=== PATIENT | male | born 1985 | race Two or more races ===

== ENCOUNTER 2025-05-29 19:58 | Inpatient (IN) | payer MEDICAID, OTHER ==
[~2025-05-29] VITALS: Ht 165.1 cm; Wt 95.4 kg
--- NOTE | 2025-05-29 20:19 | ED.PDOC ---
GI ASSESSMENT HPI Comments 39 year old male who came to ER for abdominal pain. About 3 hours prior to arrival, patient developed sudden onset sharp epigastric abdominal pain, radiating to his right lower quadrant. Tender to touch. Noted to be nauseated. Denies any history of abdominal surgeries Chief Complaint: Abdominal Pain Time Seen by MD: 20:19 Reviewed Notes: Nurses Notes Allergies: Coded Allergies: No Known Drug Allergy (Verified Allergy, Unknown, 05/29/25) Information Source: Patient Mode of Arrival: Ambulatory Past Medical History PAST MEDICAL HISTORY: Denies Surgical History: Denies all surgeries Family History Family History: Reviewed,noncontributory to illness Social History Smoker: Non-Smoker Alcohol: Denies ETOH Use Drugs: Denies Drug Use Lives In: Home Constitutional: denies: chills, diaphoresis, fatigue, fever, malaise, sweats, weakness, others EENTM: denies: blurred vision, double vision, ear bleeding, ear discharge, ear drainage, ear pain, ear ringing, eye pain, eye redness, hearing loss, mouth pain, mouth swelling, nasal discharge, nose bleeding, nose congestion, nose pain, photophobia, tearing, throat pain, throat swelling, voice changes, others Respiratory: denies: cough, hemoptysis, orthopnea, SOB at rest, shortness of breath, SOB with excertion, stridor, wheezing, others Cardiovascular: denies: chest pain, dizzy spells, diaphoresis, Dyspnea on exertion, edema, irregular heart beat, left arm pain, lightheadedness, palpi tations, PND, syncope, others Gastrointestinal: reports: abdominal pain, nausea; denies: abdomen distended, blood streaked bowels, constipated, diarrhea, dysphagia, difficulty swallowing, hematemesis, melena, poor appetite, poor fluid intake, rectal bleeding, rectal pain, vomiting, others Genitourinary: denies: burning, dysuria, flank pain, frequency, hematuria, incontinence, penile discharge, penile sore, pain, testicle pain, testicle swelling, urgency, others Neurological: denies: dizziness, fainting, headache, left sided numbness, left sided weakness, numbness, paresthesia, pre-existing deficit, right sided numbness, right sided weakness, seizure, speech problems, tingling, tremors, weakness, others Musculoskeletal: denies: back pain, gout, joint pain, joint swelling, muscle pain, muscle stiffness, neck pain, others Integumetry: denies: bruises, change in color, change in hair/nails, dryness, laceration, lesions, lumps, rash, wounds, others Allergic/Immunocompromised: denies: Difficulty Healing, Frequent Infections, Hives, Itching, others Hematologic/Lymphatic: denies: anemia, blood clots, easy bleeding, easy bruising, swollen glands, others Endocrine: denies: excessive hunger, excessive sweating, excessive thirst, excessive urination, flushing, intolerance to cold, intolerance to heat, unexpla ined weight gain, unexplained weight loss, others Psychiatric: denies: anxiety, bipolar disorder, depression, hopeless, panic disorder, schizophrenia, sleepless, suicidal, others Physical Exam General Appearance: No Apparent Distress, Normal HEENT: Normal ENT Inspection, Pharynx Normal, TMs Normal Neck: Full Range of Motion, Non-Tender, Normal, Normal Inspection Respiratory: Chest Non-Tender, Lungs Clear, No Accessory Muscle Use, No Respiratory Distress, Normal Breath Sounds Cardiovascular: No Edema, No JVD, No Murmur, No Gallop, Normal Peripheral Pulses, Regular Rate/Rhythm Breast Exam: Deferred Gastrointestinal: No Organomegaly, Non Tender, No Pulsatile Mass, Normal Bowel Sounds, Soft Genitalia: Deferred Pelvic: Deferred Rectal: Deferred Extremities: No calf tenderness, Normal capillary refill, Normal inspection, Normal range of motion, Non-tender, No pedal edema Musculoskeletal : Apperance: Normal Neurologic: Alert, boom worker II-XII nml as Tested, No Motor Deficits, Normal Affect, Normal Mood, No Sensory Deficits Cerebellar Function: Normal Reflexes: Normal Skin: Dry, Normal Color, Warm Lymphatic: No Adenopathy Was a procedure done? Was a procedure done?: No GI differential Dx Differential Diagnosis: Appendicitis, Cholecystitis, Constipation, Diverticular disease, Gastritis/PUD, Gastroenteritis, Pancreatitis X-Ray, Labs, Meds, VS Vital Signs Date Time Temp Pulse Resp B/P (MAP) Pulse Ox O2 Delivery O2 Flow Rate FiO2 05/29/25 23:32 98.5 76 15 140/85 (103) 98 98.5 05/29/25 23:31 76 15 140/85 05/29/25 21:18 70 18 128/67 05/29/25 21:09 98.5 70 18 128/67 (87) 95 98.5 05/29/25 20:00 97.7 57 18 138/77 97 97.7 Lab Test 05/29/25 21:19 05/29/25 20:52 05/29/25 20:20 Range/Units Lactic Acid Level 1.7 0.4-2.0 mmol/L Urine Color Yellow Yellow Urine Clarity Clear Clear Urine pH 6.0 5.0-9.0 Urine Specific [place] 1.035 1.001-1.035 Urine Protein Trace H Negative Urine Ketones Trace Negative Urine Blood Negative Negative /uL Urine Nitrite Negative Negative Urine Bilirubin Negative Negative Urine Urobilinogen Normal Negative mg/dL Urine Leukocyte Esterase Negative Negative /uL Urine RBC 2 0 - 3 /hpf Urine Microscopic WBC < 1 0-3 /HPF Urine Squamous Epithelial Cells None seen <5 /hpf Urine Bacteria None seen None Seen /hpf Urine Mucus Few None Seen Urine Glucose Normal Normal mg/dL White Blood Count 13.8 H 4.4-10.8 10^3/uL Red Blood Count 5.02 4.5-5.90 10^6/uL Hemoglobin 15.4 13.5-17.5 g/dL Hematocrit 44.2 41.0-53.0 % Mean Corpuscular Volume 88.1 80.0-100.0 fL Mean Corpuscular Hemoglobin 30.7 28.0-32.0 pg Mean Corpuscular Hemoglobin Concent 34.8 32.0-36.0 g/dL Red Cell Distribution Width 12.9 11.8-14.3 % Platelet Count 378 140-450 10^3/uL Mean Platelet Volume 6.8 L 6.9-10.8 fL Neutrophils (%) (Auto) 86.8 H 37.0-80.0 % Lymphocytes (%) (Auto) 8.3 L 10.0-50.0 % Monocytes (%) (Auto) 4.4 0.0-12.0 % Eosinophils (%) (Auto) 0.2 0.0-7.0 % Basophils (%) (Auto) 0.3 0.0-2.0 % Neutrophils # (Auto) 12.0 H 1.6-8.6 10 ^3/uL Lymphocytes # (Auto) 1.1 0.4-5.4 10 ^3/uL Monocytes # (Auto) 0.6 0-1.3 10 ^3/uL Eosinophils # (Auto) 0 0-0.8 10 ^3/uL Basophils # (Auto) 0 0-0.2 10 ^3/uL Nucleated Red Blood Cells 0.0 % Sodium Level 142 136-145 mmol/L Potassium Level 4.3 3.5-5.1 mmol/L Chloride Level 102 98-107 mmol/L Carbon Dioxide Level 30 20-31 mmol/L Anion Gap 10 5-15 Blood Urea Nitrogen 12 9-23 mg/dL Creatinine 1.15 0.700-1.30 mg/dL Glomerular Filtration Rate Calc 83 >90 mL/min BUN/Creatinine Ratio 10.4 10.0-20.0 Serum Glucose 118 H 74-106 mg/dL Calcium Level 9.9 8.7-10.4 mg/dL Total Bilirubin 0.4 0.2-1.0 mg/dL Aspartate Amino Transferase (AST) 34 13-40 U/L Alanine Aminotransferase (ALT) 57 H 7-40 U/L Alkaline Phosphatase 51 46-116 U/L Total Protein 7.7 5.7-8.2 g/dL Albumin 5.0 H 3.2-4.8 g/dL Lipase 35 12-53 U/L Current Medications Medications (Trade) Dose Ordered Sig/Huber Route Start Time Stop Time Status Last Admin Ondansetron HCl (Zofran) 4 mg ONCE ONCE IV 05/29/25 20:15 05/29/25 20:16 DC 05/29/25 21:17 Sodium Chloride 1,000 ml @ 1,000 mls/hr Q1H ONCE IVB 05/29/25 20:15 05/29/25 21:14 DC 05/29/25 21:17 Morphine Sulfate 4 mg ONCE ONCE IV 05/29/25 20:15 05/29/25 20:16 DC 05/29/25 21:18 Sodium Chloride 500 ml @ 500 mls/hr Q1H ONCE IV 05/29/25 22:45 05/29/25 23:44 DC 05/29/25 22:45 Exam: CT CT AB PEL WITH IV CON ONLY History: RLQ pain COMPARISON: None Technique: Multidetector spiral CT of the abdomen and pelvis was performed from lung bases to pubic symphysis. Intravenous contrast was administered during this examination. Portal venous imaging was obtained. Axial, coronal and sagittal multiplanar reformats were performed by the technologist on a separate workstation. Radiation Dose : 1. Abdomen/Pelvis: CTDIvol 18.84mGy, DLP 1047.66 mGy*cm. CONTRAST: Type of contrast: Isovue Contrast injected: 100 ml Findings: Lung Bases: No acute or significant lung base finding. Normal heart size. No pleural or pericardial effusion. Liver: The liver is normal in size. No focal lesions. Normal hepatic vascular enhancement. Gallbladder and Biliary Tree: Unremarkable Spleen: Unremarkable Pancreas: The pancreas is normal in appearance without focal lesions or abnormal enhancement. Adrenal Glands: Unremarkable Kidneys: No hydronephrosis. Bladder: Unremarkable Bowel: The stomach is grossly normal in appearance. Small-bowel obstruction with probable transition point in the right lower quadrant. Concentric wall thickening of the distal colon may reflect underdistention versus mild colitis. The appendix is not visualized; however, no secondary findings of acute appendicitis identified. Ascites: Absent Lymphadenopathy: No mesenteric, retroperitoneal or periportal lymphadenopathy. Abdominal Wall and Mesentery: Unremarkable. Vasculature: The visualized abdominal aorta is normal in size and caliber. Abdominal and pelvic vessels demonstrate normal enhancement. Pelvic Organs: Unremarkable Musculoskeletal: No aggressive focal bony lesions, acute fractures or dislocation. IMPRESSION: 1. Small-bowel obstruction with probable transition point in the right lower quadrant. 2. Concentric wall thickening of the distal colon may reflect underdistention versus mild colitis. Radiation optimization: All CT scans at this facility use at least one of these dose optimization techniques: automated exposure control mA and/or kV adjustment per patient size (includes targeted exams where dose is matched to clinical indication) or iterative reconstruction. Time of 1ST Reevaluation: 20:17 Reevaluation 1ST: Unchanged Patient Education/Counseling: Diagnosis, Treatment Family Education/Counseling: No Family Present SEPSIS Sepsis Screen Date sepsis recognized/suspect: May 29, 2025 Time Sepsis recognized/suspect: 2001 Recent Procedure: No On Antibiotic Therapy: No Respiratory Rate >20: No Heart Rate >90: No Temp<36 C (96.8 F) or >38.3 C: No SBP <90 or MAP <65 mmHG: No New Acute Mental Status Change: No Is the patient on CPAP, BIPAP,: No Physician Orders Ct Ab Pel With Iv Con Only (05/29/25 20:11) Blood Culture (05/29/25 20:57) Ng To Lis (05/30/25 00:09) Place Ng (05/30/25 00:09) Vital Signs Date Time Temp Pulse Resp B/P (MAP) Pulse Ox O2 Delivery O2 Flow Rate FiO2 05/29/25 23:32 98.5 76 15 140/85 (103) 98 98.5 05/29/25 23:31 76 15 140/85 05/29/25 21:18 70 18 128/67 05/29/25 21:09 98.5 70 18 128/67 (87) 95 98.5 05/29/25 20:00 97.7 57 18 138/77 97 97.7 Laboratory Tests Test 05/29/25 20:20 05/29/25 21:19 White Blood Count 13.8 10^3/uL (4.4-10.8) H Lactic Acid Level 1.7 mmol/L (0.4-2.0) Medications Medications Dose Ordered Sig/Huber Route Start Time Stop Time Status Last Admin Dose Admin Morphine Sulfate 4 mg ONCE ONCE IV 05/29/25 20:15 05/29/25 20:16 DC 05/29/25 21:18 Ondansetron HCl 4 mg ONCE ONCE IV 05/29/25 20:15 05/29/25 20:16 DC 05/29/25 21:17 Sodium Chloride 500 ml @ 500 mls/hr Q1H ONCE IV 05/29/25 22:45 05/29/25 23:44 DC 05/29/25 22:45 Sodium Chloride 1,000 ml @ 1,000 mls/hr Q1H ONCE IVB 05/29/25 20:15 05/29/25 21:14 DC 05/29/25 21:17 Departure 1 Departure Time of Disposition: 00:10 Impression: Primary Impression: Small bowel obstruction Disposition: ADMITTED INPATIENT Admit to: Med Surg Condition: Guarded Comments 39-year-old male with abdominal pain. His CT appears stated show small bowel obstruction. I ordered an NG tube. Patient will need to be admitted for pain further walk happening possible surgical consultation Critical Care Note Critical Care Time?: Yes (35 min-critical care time only) Critical care comment: Total critical care time: Approximately 36 minutes Due to a high probability of clinically significant, life threatening deterioration, the patient required my highest level of preparedness to intervene emergently and I personally spent this critical care time directly and personally managing the patient. This critical care time included obtaining a history; examining the patient; pulse oximetry; ordering and review of studies; arranging urgent treatment with development of a management plan; evaluation of patient's response to treatment; frequent reassessment; and, discussions with other providers. This critical care time was performed to assess and manage the high probability of imminent, life-threatening deterioration that could result in multi-organ failure. It was exclusive of separately billable procedures and treating other patients. Stability Stability form required: No Heart Score Heart Score: Heart Score Response (Comments) Value History N/A 0 EKG N/A 0 Age N/A 0 Risk Factors N/A 0 Troponin N/A 0 Total 0 I personally scribed for CB COFFMAN MD ([email or web address]) on 05/29/25 at 20:19. Electronically submitted by Robert Preston ([email or web address]). I personally scribed for CB COFFMAN MD ([email or web address]) on 05/30/25 at 00:10. Electronically submitted by Robert Preston ([email or web address]). CB COFFMAN MD May 29, 2025 20:19
[2025-05-29 20:28] LABS: Hematocrit 44.2 % (41.0-53.0); Hemoglobin 15.4 g/dL (13.5-17.5); Mean Corpuscular Hemoglobin 30.7 pg (28.0-32.0); Mean Corpuscular Volume 88.1 fL (80.0-100.0); Nucleated Red Blood Cells % 0.0 %
[2025-05-29 20:46] LABS: Alkaline Phosphatase 51 U/L (46-116); Anion Gap 10 (5-15); BUN/Creatinine Ratio 10.4 (10.0-20.0); Bilirubin, Total 0.4 mg/dL (0.2-1.0); Blood Urea Nitrogen 12 mg/dL (9-23); Calcium 9.9 mg/dL (8.7-10.4); Carbon Dioxide 30 mmol/L (20-31); Chloride 102 mmol/L (98-107); Lipase 35 U/L (12-53); Potassium 4.3 mmol/L (3.5-5.1); Sodium 142 mmol/L (136-145); Total Protein 7.7 g/dL (5.7-8.2)
[2025-05-29 20:49] LABS: Alanine Aminotransferase 57 U/L (7-40); Albumin 5.0 g/dL (3.2-4.8); Glucose 118 mg/dL (74-106)
[2025-05-29 21:04] LABS: Urine Protein, UAD TRACE (Negative)
[2025-05-29] MEDS: ONDANSETRON HCL 4 MG/2 ML VIAL IV ONE (21:17)
[2025-05-29] MEDS: SODIUM CHLORIDE 0.9% 1,000 ML IVB ONE (21:17)
[2025-05-29] MEDS: MORPHINE SULFATE 4 MG/ML SYR/VIAL IV ONE (21:18)
[2025-05-29] MEDS: SODIUM CHLORIDE 0.9% 500 ML IV ONE (22:45)
--- NOTE | 2025-05-29 23:55 | DVH ---
Exam: CT CT AB PEL WITH IV CON ONLY History: RLQ pain COMPARISON: None Technique: Multidetector spiral CT of the abdomen and pelvis was performed from lung bases to pubic symphysis. Intravenous contrast was administered during this examination. Portal venous imaging was obtained. Axial, coronal and sagittal multiplanar reformats were performed by the technologist on a separate workstation. Radiation Dose : 1. Abdomen/Pelvis: CTDIvol 18.84mGy, DLP 1047.66 mGy*cm. CONTRAST: Type of contrast: Isovue Contrast injected: 100 ml Findings: Lung Bases: No acute or significant lung base finding. Normal heart size. No pleural or pericardial effusion. Liver: The liver is normal in size. No focal lesions. Normal hepatic vascular enhancement. Gallbladder and Biliary Tree: Unremarkable Spleen: Unremarkable Pancreas: The pancreas is normal in appearance without focal lesions or abnormal enhancement. Adrenal Glands: Unremarkable Kidneys: No hydronephrosis. Bladder: Unremarkable Bowel: The stomach is grossly normal in appearance. Small-bowel obstruction with probable transition point in the right lower quadrant. Concentric wall thickening of the distal colon may reflect underdistention versus mild colitis. The appendix is not visualized; however, no secondary findings of acute appendicitis identified. Ascites: Absent Lymphadenopathy: No mesenteric, retroperitoneal or periportal lymphadenopathy. Abdominal Wall and Mesentery: Unremarkable. Vasculature: The visualized abdominal aorta is normal in size and caliber. Abdominal and pelvic vessels demonstrate normal enhancement. Pelvic Organs: Unremarkable Musculoskeletal: No aggressive focal bony lesions, acute fractures or dislocation. IMPRESSION: 1. Small-bowel obstruction with probable transition point in the right lower quadrant. 2. Concentric wall thickening of the distal colon may reflect underdistention versus mild colitis. Radiation optimization: All CT scans at this facility use at least one of these dose optimization techniques: automated exposure control mA and/or kV adjustment per patient size (includes targeted exams where dose is matched to clinical indication) or iterative reconstruction.
--- NOTE | 2025-05-30 00:55 | DVHHPRES ---
History of Present Illness Resident Creating Document: JENNY FOWLER RESIDENT History of Present Illness Mr. Quincy Morales, 39-year-old male with no significant past medical history presented to the ER with the complaints of abdominal pain, low-grade fever, nausea, vomiting. He reports having periumbilical pain, gradual onset, radia ting to the right and left lower quadrant associated with vomiting containing undigested foods. The vomiting was not mixed with blood. The patient was having a normal day, then around 4:00 p.m. he ate 12 packs of hot Cheetos, pork, two tacos and burritos followed by gradual onset abdominal pain and distention. He denies any history of constipation, he normally has 4-5 bowel movements per day, he was not diagnosed with IBS. He denies any chest pain, shortness of breaths, urinary symptoms or constipation. Past medical history: Nothing significant Past surgical history: Never Allergies: None Home medications: Multiple supplements which he started 1 week ago: Liposomal astaxanthin, multivitamins, Bee breed capsule Alcohol: Occasionally, last drink was yesterday 1 cup Drugs never Smoking: Occasional cigars Code status: Full code Review of Systems Allergies: Coded Allergies: No Known Drug Allergy (Verified Allergy, Unknown, 05/29/25) Exam Vital Signs Vital Signs Date Time Temp Pulse Resp B/P (MAP) Pulse Ox O2 Delivery O2 Flow Rate FiO2 05/29/25 23:32 98.5 76 15 140/85 (103) 98 98.5 Exam Pt is lying on bed General Appearance: Alert, Oriented X3, Cooperative, Mild distress HEENT: Atraumatic, Mucous membranes moist/pink Respiratory: Clear to auscultation, Normal air movement, No added sounds Cardiovascular: Regular rate, Normal S1, Normal S2, No murmurs Abdominal/ : Active bowel sounds, Soft, no distention, periumbilical and right and left lower quadrant tenderness Extremities: No edema, Normal pulses, No tenderness/swelling Skin: No Significant rash, except past surgical scars Neuro: Normal speech, sensorimotor deficits none Psych/Mental Status: Mental status NL, Mood NL Nurse was there as bagger and stock handler helper during examination Labs/Xrays Labs Test 05/29/25 21:19 05/29/25 20:52 05/29/25 20:20 Range/Units Lactic Acid Level 1.7 0.4-2.0 mmol/L Urine Color Yellow Yellow Urine Clarity Clear Clear Urine pH 6.0 5.0-9.0 Urine Specific [place] 1.035 1.001-1.035 Urine Protein Trace H Negative Urine Ketones Trace Negative Urine Blood Negative Negative /uL Urine Nitrite Negative Negative Urine Bilirubin Negative Negative Urine Urobilinogen Normal Negative mg/dL Urine Leukocyte Esterase Negative Negative /uL Urine RBC 2 0 - 3 /hpf Urine Microscopic WBC < 1 0-3 /HPF Urine Squamous Epithelial Cells None seen <5 /hpf Urine Bacteria None seen None Seen /hpf Urine Mucus Few None Seen Urine Glucose Normal Normal mg/dL White Blood Count 13.8 H 4.4-10.8 10^3/uL Red Blood Count 5.02 4.5-5.90 10^6/uL Hemoglobin 15.4 13.5-17.5 g/dL Hematocrit 44.2 41.0-53.0 % Mean Corpuscular Volume 88.1 80.0-100.0 fL Mean Corpuscular Hemoglobin 30.7 28.0-32.0 pg Mean Corpuscular Hemoglobin Concent 34.8 32.0-36.0 g/dL Red Cell Distribution Width 12.9 11.8-14.3 % Platelet Count 378 140-450 10^3/uL Mean Platelet Volume 6.8 L 6.9-10.8 fL Neutrophils (%) (Auto) 86.8 H 37.0-80.0 % Lymphocytes (%) (Auto) 8.3 L 10.0-50.0 % Monocytes (%) (Auto) 4.4 0.0-12.0 % Eosinophils (%) (Auto) 0.2 0.0-7.0 % Basophils (%) (Auto) 0.3 0.0-2.0 % Neutrophils # (Auto) 12.0 H 1.6-8.6 10 ^3/uL Lymphocytes # (Auto) 1.1 0.4-5.4 10 ^3/uL Monocytes # (Auto) 0.6 0-1.3 10 ^3/uL Eosinophils # (Auto) 0 0-0.8 10 ^3/uL Basophils # (Auto) 0 0-0.2 10 ^3/uL Nucleated Red Blood Cells 0.0 % Sodium Level 142 136-145 mmol/L Potassium Level 4.3 3.5-5.1 mmol/L Chloride Level 102 98-107 mmol/L Carbon Dioxide Level 30 20-31 mmol/L Anion Gap 10 5-15 Blood Urea Nitrogen 12 9-23 mg/dL Creatinine 1.15 0.700-1.30 mg/dL Glomerular Filtration Rate Calc 83 >90 mL/min BUN/Creatinine Ratio 10.4 10.0-20.0 Serum Glucose 118 H 74-106 mg/dL Calcium Level 9.9 8.7-10.4 mg/dL Total Bilirubin 0.4 0.2-1.0 mg/dL Aspartate Amino Transferase (AST) 34 13-40 U/L Alanine Aminotransferase (ALT) 57 H 7-40 U/L Alkaline Phosphatase 51 46-116 U/L Total Protein 7.7 5.7-8.2 g/dL Albumin 5.0 H 3.2-4.8 g/dL Lipase 35 12-53 U/L SEPSIS Sepsis Screen Date sepsis recognized/suspect: May 29, 2025 Time Sepsis recognized/suspect: 2001 Recent Procedure: No On Antibiotic Therapy: No Respiratory Rate >20: No Heart Rate >90: No Temp<36 C (96.8 F) or >38.3 C: No SBP <90 or MAP <65 mmHG: No New Acute Mental Status Change: No Is the patient on CPAP, BIPAP,: No Physician Orders Ct Ab Pel With Iv Con Only (05/29/25 20:11) Blood Culture (05/29/25 20:57) Ng To Lis (05/30/25 00:09) Place Ng (05/30/25 00:09) Vital Signs Date Time Temp Pulse Resp B/P (MAP) Pulse Ox O2 Delivery O2 Flow Rate FiO2 05/29/25 23:32 98.5 76 15 140/85 (103) 98 98.5 05/29/25 23:31 76 15 140/85 05/29/25 21:18 70 18 128/67 05/29/25 21:09 98.5 70 18 128/67 (87) 95 98.5 05/29/25 20:00 97.7 57 18 138/77 97 97.7 Laboratory Tests Test 05/29/25 20:20 05/29/25 21:19 White Blood Count 13.8 10^3/uL (4.4-10.8) H Lactic Acid Level 1.7 mmol/L (0.4-2.0) Medications Medications Dose Ordered Sig/Huber Route Start Time Stop Time Status Last Admin Dose Admin Morphine Sulfate 4 mg ONCE ONCE IV 05/29/25 20:15 05/29/25 20:16 DC 05/29/25 21:18 4 MG Ondansetron HCl 4 mg ONCE ONCE IV 05/29/25 20:15 05/29/25 20:16 DC 05/29/25 21:17 4 MG Sodium Chloride 500 ml @ 500 mls/hr Q1H ONCE IV 05/29/25 22:45 05/29/25 23:44 DC 05/29/25 22:45 500 MLS/HR Sodium Chloride 1,000 ml @ 1,000 mls/hr Q1H ONCE IVB 05/29/25 20:15 05/29/25 21:14 DC 05/29/25 21:17 1,000 MLS/HR Assessment/Plan Assessment/Plan Acute small-bowel obstruction -IV fluid -NG tube with a low intermittent suction -IV morphine -ondansetron -IV ceftriaxone and IV metronidazole -surgical consult done GI prophylaxis: Pantoprazole DVT prophylaxis: Lovenox Diet: NPO Goals of care discussed with the patient for more than 27 minutes: Full code status Case discussed with Dr. Westfall, patient and RN Plan discussed with: Patient, Other Date of Service: May 30, 2025 Billing Provider: PAULY WESTFALL MD MALCOL[facility] RESIDENT May 30, 2025 00:55
[2025-05-30] MEDS: SODIUM CHLORIDE 0.9% 1,000 ML IV SCH (01:00)
[2025-05-30] MEDS: MORPHINE SULFATE 4 MG/ML SYR/VIAL IV ONE (01:56)
--- NOTE | 2025-05-30 03:45 | DVH ---
CHEST RADIOGRAPH Indication: ng tube placement Technique: Single frontal view of the chest was obtained COMPARISON: None FINDINGS: Lines and Tubes: Enteric catheter courses below the level of the diaphragm and terminates within the left upper quadrant, presumably within the gastric lumen. Lungs: Clear Pleura: No effusion. No pneumothorax. Cardiomediastinal contours: Cardiomegaly. Bones: Unremarkable IMPRESSION: 1. Cardiomegaly. 2. Enteric catheter as above.
[2025-05-30] MEDS: SODIUM CHLOR 0.9% PF (SALINE LOCK) 10ML VIAL/SYR IV SCH (05:16)
[2025-05-30] MEDS: MORPHINE SULFATE INJ 2 MG/ml SYRG IV PRN (05:24)
[2025-05-30 06:59] LABS: INR 1.03 (0.9-1.15); Partial Thromboplastin Time 25.9 SEC (24.5-34.5); Prothrombin Time 10.9 sec (9.3-11.8)
--- NOTE | 2025-05-30 09:11 | DVHINCON2 ---
Date of service: May 30, 2025 History of Present Illness 39-year-old male without significant past medical history admitted secondary to one day history of right lower quadrant abdominal pain. Patient denies any fevers, chills, nausea or vomiting. Patient had a bowel movement yesterday. Past Medical History None Past Surgical History None Family History Noncontributory Social History Rare alcohol. Denies any tobacco or IV drug use Allergies: Coded Allergies: No Known Drug Allergy (Verified Allergy, Unknown, 05/29/25) Current Medications Current Medications Medications (Trade) Dose Ordered Sig/Huber Route PRN Reason Start Time Stop Time Status Last Admin Sodium Chloride (Saline Lock Ns) 10 ml Q8HR IV 05/30/25 06:00 05/30/25 05:16 Sodium Chloride 1,000 ml @ 120 mls/hr Q8H20M IV 05/30/25 01:00 05/30/25 01:00 Ondansetron HCl (Zofran) 4 mg Q4HP PRN IV NAUSEA / VOMITING 05/30/25 01:00 Enoxaparin Sodium (Lovenox) 40 mg DAILY SC 05/30/25 10:22 06/03/25 09:21 Ceftriaxone Sodium 50 ml @ 100 mls/hr Q24H IV 05/31/25 02:00 Metronidazole 100 ml @ 100 mls/hr Q8H IV 05/30/25 09:00 Pantoprazole Sodium (Protonix) 40 mg DAILY IV 05/30/25 10:00 Morphine Sulfate 2 mg Q4HPRN PRN IV MODERATE PAIN (4-6 PAIN SCALE) 05/30/25 05:15 05/30/25 05:24 Vital Signs Vital Signs Date Time Temp Pulse Resp B/P (MAP) Pulse Ox O2 Delivery O2 Flow Rate FiO2 05/30/25 05:54 67 20 98/57 05/30/25 03:06 97.9 97 97.9 Physical Exam GEN: Age-appropriate male in no acute distress. Alert. NG tube to low intermittent suction. HEENT: Normocephalic atraumatic. Moist mucous membranes. Anicteric sclerae. CV: RRR Respiratory: CTAB ABD: Minimal bilateral lower quadrant tenderness to palpation more so in the right without guarding or rebound. Very minimal distention. CT of the abdomen and pelvis: Small bowel obstruction with probable transition point in the right lower quadrant. Concentric wall thickening of the distal colon which may reflect under distention versus mild colitis. Appendix is not visualized. Labs/Diagnostic Data Labs Test 05/30/25 06:07 05/29/25 21:19 05/29/25 20:52 05/29/25 20:20 Range/Units Prothrombin Time 10.9 9.3-11.8 sec Prothrombin Time INR 1.03 0.9-1.15 Activated Partial Thromboplast Time 25.9 24.5-34.5 SEC Lactic Acid Level 1.7 0.4-2.0 mmol/L Urine Color Yellow Yellow Urine Clarity Clear Clear Urine pH 6.0 5.0-9.0 Urine Specific [place] 1.035 1.001-1.035 Urine Protein Trace H Negative Urine Ketones Trace Negative Urine Blood Negative Negative /uL Urine Nitrite Negative Negative Urine Bilirubin Negative Negative Urine Urobilinogen Normal Negative mg/dL Urine Leukocyte Esterase Negative Negative /uL Urine RBC 2 0 - 3 /hpf Urine Microscopic WBC < 1 0-3 /HPF Urine Squamous Epithelial Cells None seen <5 /hpf Urine Bacteria None seen None Seen /hpf Urine Mucus Few None Seen Urine Glucose Normal Normal mg/dL White Blood Count 13.8 H 4.4-10.8 10^3/uL Red Blood Count 5.02 4.5-5.90 10^6/uL Hemoglobin 15.4 13.5-17.5 g/dL Hematocrit 44.2 41.0-53.0 % Mean Corpuscular Volume 88.1 80.0-100.0 fL Mean Corpuscular Hemoglobin 30.7 28.0-32.0 pg Mean Corpuscular Hemoglobin Concent 34.8 32.0-36.0 g/dL Red Cell Distribution Width 12.9 11.8-14.3 % Platelet Count 378 140-450 10^3/uL Mean Platelet Volume 6.8 L 6.9-10.8 fL Neutrophils (%) (Auto) 86.8 H 37.0-80.0 % Lymphocytes (%) (Auto) 8.3 L 10.0-50.0 % Monocytes (%) (Auto) 4.4 0.0-12.0 % Eosinophils (%) (Auto) 0.2 0.0-7.0 % Basophils (%) (Auto) 0.3 0.0-2.0 % Neutrophils # (Auto) 12.0 H 1.6-8.6 10 ^3/uL Lymphocytes # (Auto) 1.1 0.4-5.4 10 ^3/uL Monocytes # (Auto) 0.6 0-1.3 10 ^3/uL Eosinophils # (Auto) 0 0-0.8 10 ^3/uL Basophils # (Auto) 0 0-0.2 10 ^3/uL Nucleated Red Blood Cells 0.0 % Sodium Level 142 136-145 mmol/L Potassium Level 4.3 3.5-5.1 mmol/L Chloride Level 102 98-107 mmol/L Carbon Dioxide Level 30 20-31 mmol/L Anion Gap 10 5-15 Blood Urea Nitrogen 12 9-23 mg/dL Creatinine 1.15 0.700-1.30 mg/dL Glomerular Filtration Rate Calc 83 >90 mL/min BUN/Creatinine Ratio 10.4 10.0-20.0 Serum Glucose 118 H 74-106 mg/dL Calcium Level 9.9 8.7-10.4 mg/dL Total Bilirubin 0.4 0.2-1.0 mg/dL Aspartate Amino Transferase (AST) 34 13-40 U/L Alanine Aminotransferase (ALT) 57 H 7-40 U/L Alkaline Phosphatase 51 46-116 U/L Total Protein 7.7 5.7-8.2 g/dL Albumin 5.0 H 3.2-4.8 g/dL Lipase 35 12-53 U/L Assessment 1. Small-bowel obstruction Plan/Recommendation 1. Continue with NG tube decompression 2. Fluid resuscitation 3. Small-bowel follow-through with Gastrografin tomorrow after decompressing today. Plan discussed with: Patient MARILYN CHAN MD May 30, 2025 09:11
[2025-05-30] MEDS: ONDANSETRON HCL 4 MG/2 ML VIAL IV PRN (10:41)
[2025-05-30] MEDS: PANTOPRAZOLE 40 MG/10 ML VIAL INJ IV SCH (10:41)
[2025-05-30] MEDS: ENOXAPARIN SOD 40 MG/0.4 ML SYRINGE SC SCH (11:17)
[2025-05-30 15:42] VITALS: BP 144/90; PULSE 75; RESP 17; TEMP 98.4; O2SAT 92
[2025-05-30 17:00] VITALS: BP 144/90; PULSE 75; RESP 17; TEMP 98.4; O2SAT 92
[2025-05-30] MEDS: KETOROLAC TROMETH 30 MG/ML 1ML VIAL IV ONE (20:54)
[2025-05-30 21:00] VITALS: BP 119/81; PULSE 64; RESP 19; TEMP 98; O2SAT 94
[2025-05-31 01:00] VITALS: BP 119/70; PULSE 77; RESP 18; TEMP 97.8; O2SAT 92
[2025-05-31 05:00] VITALS: BP 120/76; PULSE 71; RESP 17; TEMP 97.7; O2SAT 91
[2025-05-31 06:13] LABS: Hematocrit 39.3 % (41.0-53.0); Hemoglobin 13.7 g/dL (13.5-17.5); Mean Corpuscular Hemoglobin 31.0 pg (28.0-32.0); Mean Corpuscular Volume 89.1 fL (80.0-100.0); Nucleated Red Blood Cells % 0.1 %
[2025-05-31 06:44] LABS: Albumin 4.0 g/dL (3.2-4.8); Anion Gap 10 (5-15); BUN/Creatinine Ratio 15.4 (10.0-20.0); Blood Urea Nitrogen 16 mg/dL (9-23); Calcium 8.8 mg/dL (8.7-10.4); Carbon Dioxide 28 mmol/L (20-31); Chloride 107 mmol/L (98-107); Glucose 91 mg/dL (74-106); Potassium 3.6 mmol/L (3.5-5.1); Sodium 145 mmol/L (136-145); Total Protein 6.1 g/dL (5.7-8.2)
[2025-05-31 06:45] LABS: Alanine Aminotransferase 42 U/L (7-40); Alkaline Phosphatase 42 U/L (46-116); Bilirubin, Total 0.6 mg/dL (0.2-1.0)
[2025-05-31 08:54] VITALS: BP 148/79; PULSE 60; RESP 16; TEMP 98.4; O2SAT 92
--- NOTE | 2025-05-31 09:06 | DVH ---
CHEST RADIOGRAPH Indication: NG tube placement Technique: Single frontal view of the chest was obtained. Comparison: XY CHEST XRAY 1 VIEW on DOS: 05/30/25 Findings: Gastric drainage tube with tip in the stomach. Patchy bibasilar opacities, [id number], similar to prior. No significant pleural effusion. No pneumothorax. Stable cardiomediastinal silhouette. IMPRESSION: Gastric drainage tube with tip in the stomach.
--- NOTE | 2025-05-31 12:06 | DVH ---
CHEST RADIOGRAPH Indication: NGT placement Technique: Single frontal view of the chest was obtained. Comparison: XY CHEST XRAY 1 VIEW on DOS: 05/31/25 Findings: Limited study with left costophrenic angle out of [id number]. Gastric drainage tube with tip in the stomach. Similar bibasilar patchy opacities. No significant pleural effusion. No pneumothorax. Stable cardiomediastinal silhouette. IMPRESSION: Gastric drainage tube with tip in the stomach.
--- NOTE | 2025-05-31 12:31 | DVHPN2 ---
Subjective The patient is seen and examined at bedside. The patient feel better. The patient want NG-tube out. Still waiting for surgeon to see the patient. The patient stated he moved couple bowel movement and he is hungry and wanted to eat. The patient is still NPO. Reviewed: Care Plan, H&P, Labs, Medications, Previous Orders, Radiology Changes from previous H/P or p: No Changes Objective Vitals Vital Signs Date Time Temp Pulse Resp B/P (MAP) Pulse Ox O2 Delivery O2 Flow Rate FiO2 05/31/25 08:54 98.4 60 16 148/79 (102) 92 98.4 05/31/25 08:00 Room Air* 0 21 Intake/Output Intake and Output 05/31/25 07:00 Intake Total 250 ml Balance 250 ml Intake Oral 0 ml IV Total 250 ml # Voids 2 General Appearance: Alert, Oriented X3, Cooperative, No acute distress HEENT: Atraumatic, PERRLA, EOMI, Mucous membr. moist/pink Neck: Supple Lungs: Clear to auscultation, Normal air movement Cardiovascular: Regular rate, Normal S1, Normal S2, No murmurs, Gallops, Rubs Abdomen: Normal bowel sounds, Soft, No tenderness Neuro: Cranial nerves 3-12 NL Psych/Mental Status: Mental status NL Medications Current Medications Medications Dose Ordered Sig/Huber Route Start Time Stop Time Status Last Admin Dose Admin Sodium Chloride 10 ml Q8HR IV 05/30/25 06:00 05/31/25 05:18 10 ML Sodium Chloride 1,000 ml @ 120 mls/hr Q8H20M IV 05/30/25 01:00 05/31/25 02:22 120 MLS/HR Ondansetron HCl 4 mg Q4HP PRN IV 05/30/25 01:00 05/30/25 10:41 4 MG Enoxaparin Sodium 40 mg DAILY SC 05/30/25 10:22 06/03/25 09:21 05/30/25 11:17 40 MG Ceftriaxone Sodium 50 ml @ 100 mls/hr Q24H IV 05/31/25 02:00 05/31/25 02:22 100 MLS/HR Metronidazole 100 ml @ 100 mls/hr Q8H IV 05/30/25 09:00 05/31/25 09:48 100 MLS/HR Pantoprazole Sodium 40 mg DAILY IV 05/30/25 10:00 05/31/25 09:44 40 MG Morphine Sulfate 2 mg Q4HPRN PRN IV 05/30/25 05:15 05/30/25 10:40 2 MG Laboratory Results Laboratory Tests 05/31/25 05:19 Chemistry Test 05/31/25 05:19 Albumin 4.0 g/dL (3.2-4.8) Calcium Level 8.8 mg/dL (8.7-10.4) Total Protein 6.1 g/dL (5.7-8.2) LFT Test 05/31/25 05:19 Alanine Aminotransferase (ALT) 42 U/L (7-40) H Alkaline Phosphatase 42 U/L (46-116) L Aspartate Amino Transferase (AST) 22 U/L (13-40) Total Bilirubin 0.6 mg/dL (0.2-1.0) Urinalysis Test 05/29/25 20:52 Urine Color Yellow (Yellow) Urine Clarity Clear (Clear) Urine pH 6.0 (5.0-9.0) Urine Specific [place] 1.035 (1.001-1.035) Urine Protein Trace (Negative) H Urine Ketones Trace (Negative) Urine Blood Negative /uL (Negative) Urine Nitrite Negative (Negative) Urine Bilirubin Negative (Negative) Urine Urobilinogen Normal mg/dL (Negative) Urine Leukocyte Esterase Negative /uL (Negative) Urine RBC 2 /hpf (0 - 3) Urine Microscopic WBC < 1 /HPF (0-3) Urine Squamous Epithelial Cells None seen /hpf (<5) Urine Bacteria None seen /hpf (None Seen) Urine Mucus Few (None Seen) Urine Glucose Normal mg/dL (Normal) Microbiology Microbiology Date/Time Source Procedure Growth Status 05/29/25 21:24 Blood Blood Culture - Preliminary NO GROWTH AFTER 24 HOURS OF INCUBATION. Resulted Labs and/or images reviewed: Labs reviewed by me Assessment/Plan Assessment/Plan Acute small-bowel obstruction, probable resolved -IV fluid -NG tube with a low intermittent suction -IV morphine -ondansetron -IV ceftriaxone and IV metronidazole -surgical consult done GI prophylaxis: Pantoprazole DVT prophylaxis: Lovenox Diet: NPO Continuing current management. Hopefully surgeon we will see the patient's soon. I explained to the patient that NG tube and diet will be up to the surgeon. But I am pretty sure he will be started on clear liquid diet today after the approval of the surgeon. NG tube will be removed if okay with surgeon. This medical document was created using an electronic medical record system with [facility] computerized dictation system. Although this document has been carefully reviewed, there may still be some phonetic and typographical errors. These areas are purely typographical due to imperfections of the software programs, and do not reflect any compromise in the patient's medical care. Plan discussed with: Patient My Orders Orders - JUDITH DEXTER MD Procedure Category Date Status Time Chest Portable XY 05/31/25 Resulted 11:27 Date of Service: May 31, 2025 Billing Provider: JUDITH DEXTER MD Common Visit Codes: [id number] INP/OBS CARE(HIGH) JUDITH DEXTER MD May 31, 2025 12:31
[2025-05-31 13:00] VITALS: BP 130/76; PULSE 62; RESP 18; TEMP 98.8; O2SAT 93
--- NOTE | 2025-05-31 13:46 | DVH ---
Procedure: XY SMALL BOWEL SERIES-W GASTROGRA Reason for study/Clinical History: SBO Comparison Study: None Technique: Single contrast small bowel series performed. 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 Contrast is identified within the colon by 45 minutes. This represents a normal small bowel transit time.
--- NOTE | 2025-05-31 14:30 | DVHPN2 ---
Progress Note - Dictate Date Seen: May 31, 2025 Medical Necessity Reason Pt with a Central, PICC or Fol: No Subjective E: no major events o/n. no complaints. +BM. vital signs Vital Sign Date Time Temp Pulse Resp B/P (MAP) Pulse Ox O2 Delivery O2 Flow Rate FiO2 05/31/25 13:00 98.8 62 18 130/76 (94) 93 98.8 05/31/25 08:00 Room Air* 0 21 Total Intake and Output 05/30/25 05/30/25 05/31/25 15:00 23:00 07:00 Intake Total 100 ml 150 ml Balance 100 ml 150 ml medications Current Medications Medications Dose Ordered Sig/Huber Route Start Time Stop Time Status Last Admin Dose Admin Sodium Chloride 10 ml Q8HR IV 05/30/25 06:00 05/31/25 13:27 10 ML Sodium Chloride 1,000 ml @ 120 mls/hr Q8H20M IV 05/30/25 01:00 05/31/25 02:22 120 MLS/HR Ondansetron HCl 4 mg Q4HP PRN IV 05/30/25 01:00 05/30/25 10:41 4 MG Enoxaparin Sodium 40 mg DAILY SC 05/30/25 10:22 06/03/25 09:21 05/30/25 11:17 40 MG Ceftriaxone Sodium 50 ml @ 100 mls/hr Q24H IV 05/31/25 02:00 05/31/25 02:22 100 MLS/HR Metronidazole 100 ml @ 100 mls/hr Q8H IV 05/30/25 09:00 05/31/25 09:48 100 MLS/HR Pantoprazole Sodium 40 mg DAILY IV 05/30/25 10:00 05/31/25 09:44 40 MG Morphine Sulfate 2 mg Q4HPRN PRN IV 05/30/25 05:15 05/30/25 10:40 2 MG objective GEN: NAD ABD: soft. NT/ND. SBFT: contrast in colon in 45 min. laboratory and microbiology Laboratory Tests 05/31/25 05:19 Test 05/31/25 05:19 Range/Units Serum Glucose 91 74-106 mg/dL Assessment/Plan A: 1. resolved pSBO P: 1. dc ngt and start clear liquid diet. 2. if jesusita clear liquid diet, ok to for DC home from [facility]. Plan discussed with: Patient MARILYN CHAN MD May 31, 2025 14:30
[2025-05-31 16:51] VITALS: BP 124/81; PULSE 60; RESP 16; TEMP 98.5; O2SAT 97
[2025-05-31 21:00] VITALS: BP 132/94; PULSE 85; RESP 18; TEMP 98.4; O2SAT 94
[2025-06-01 01:00] VITALS: BP 118/78; PULSE 73; RESP 17; TEMP 98.3; O2SAT 96
[2025-06-01 05:00] VITALS: BP 123/70; PULSE 68; RESP 18; TEMP 98.3; O2SAT 97
[2025-06-01 09:00] VITALS: BP 141/82; PULSE 76; RESP 15; TEMP 97.9; O2SAT 96
--- NOTE | 2025-06-01 10:54 | DVHDS2 ---
Discharge Summary Date of Admission May 30, 2025 at 00:54 Date of Discharge: Jun 01, 2025 Admitting Diagnosis Acute small-bowel obstruction Labs/Diagnostic Data: Laboratory Results Test 05/31/25 05:19 05/30/25 06:07 05/29/25 21:19 05/29/25 20:52 White Blood Count 6.2 10^3/uL (4.4-10.8) Red Blood Count 4.41 10^6/uL (4.5-5.90) Hemoglobin 13.7 g/dL (13.5-17.5) Hematocrit 39.3 % (41.0-53.0) Mean Corpuscular Volume 89.1 fL (80.0-100.0) Mean Corpuscular Hemoglobin 31.0 pg (28.0-32.0) Mean Corpuscular Hemoglobin Concent 34.8 g/dL (32.0-36.0) Red Cell Distribution Width 13.0 % (11.8-14.3) Platelet Count 308 10^3/uL (140-450) Mean Platelet Volume 7.0 fL (6.9-10.8) Neutrophils (%) (Auto) 63.3 % (37.0-80.0) Lymphocytes (%) (Auto) 26.2 % (10.0-50.0) Monocytes (%) (Auto) 9.0 % (0.0-12.0) Eosinophils (%) (Auto) 1.3 % (0.0-7.0) Basophils (%) (Auto) 0.2 % (0.0-2.0) Neutrophils # (Auto) 3.9 10 ^3/uL (1.6-8.6) Lymphocytes # (Auto) 1.6 10 ^3/uL (0.4-5.4) Monocytes # (Auto) 0.6 10 ^3/uL (0-1.3) Eosinophils # (Auto) 0.1 10 ^3/uL (0-0.8) Basophils # (Auto) 0 10 ^3/uL (0-0.2) Nucleated Red Blood Cells 0.1 % Sodium Level 145 mmol/L (136-145) Potassium Level 3.6 mmol/L (3.5-5.1) Chloride Level 107 mmol/L (98-107) Carbon Dioxide Level 28 mmol/L (20-31) Anion Gap 10 (5-15) Blood Urea Nitrogen 16 mg/dL (9-23) Creatinine 1.04 mg/dL (0.700-1.30) Glomerular Filtration Rate Calc 93 mL/min (>90) BUN/Creatinine Ratio 15.4 (10.0-20.0) Serum Glucose 91 mg/dL (74-106) Calcium Level 8.8 mg/dL (8.7-10.4) Total Bilirubin 0.6 mg/dL (0.2-1.0) Aspartate Amino Transferase (AST) 22 U/L (13-40) Alanine Aminotransferase (ALT) 42 U/L (7-40) Alkaline Phosphatase 42 U/L (46-116) Total Protein 6.1 g/dL (5.7-8.2) Albumin 4.0 g/dL (3.2-4.8) Prothrombin Time 10.9 sec (9.3-11.8) Prothrombin Time INR 1.03 (0.9-1.15) Activated Partial Thromboplast Time 25.9 SEC (24.5-34.5) Lactic Acid Level 1.7 mmol/L (0.4-2.0) Urine Color Yellow (Yellow) Urine Clarity Clear (Clear) Urine pH 6.0 (5.0-9.0) Urine Specific [place] 1.035 (1.001-1.035) Urine Protein Trace (Negative) Urine Ketones Trace (Negative) Urine Blood Negative /uL (Negative) Urine Nitrite Negative (Negative) Urine Bilirubin Negative (Negative) Urine Urobilinogen Normal mg/dL (Negative) Urine Leukocyte Esterase Negative /uL (Negative) Urine RBC 2 /hpf (0 - 3) Urine Microscopic WBC < 1 /HPF (0-3) Urine Squamous Epithelial Cells None seen /hpf (<5) Urine Bacteria None seen /hpf (None Seen) Urine Mucus Few (None Seen) Urine Glucose Normal mg/dL (Normal) Test 05/29/25 20:20 Lipase 35 U/L (12-53) Other Laboratory Tests 05/31/25 05:19 Brief Hx & Hospital Course: This is a 39 years old male with no known past medical history come to emergency department with chief complaint of severe abdominal pain, low-grade fever, nausea, vomiting. Patient having Magaly umbilical pain radiating to the right and left lower quadrant abdomen. Pain associated with nausea and vomiting. The vomitus is food material without blood. Patient apparently ate 12 packs of hot Cheetos, pork, 2 taco and burritos, after that he started having severe abdominal pain with nausea and vomiting. The patient come to the emergency department. CT abdomen pelvis was done. It showed patient had small-bowel obstruction also concentric wall thickening of the distal colon may reflect underdistention versus mild colitis . Patient was admitted. The patient was given IV antibiotic Rocephin and Flagyl. NG tube was placed with intermittent suction. Surgeon was consulted. Recommend small-bowel follow-through. The patient's small-bowel follow-through was normal. No obstruction. The patient had multiple bowel movement. The patient's NG tube was removed. The patient tolerated clear liquid diet advanced to soft diet. So I am discharge the patient home today. Advised the patient to follow up with primary care physician 1-2 weeks. Activity as tolerated. Diet per home diet. Advised the patient to have screening and elective colonoscopy done as outpatient Physical exam: HEENT: Normocephalic atraumatic pupils equal react to light and accommodation. Extraocular muscles intact, conjunctiva pink, oropharynx moist, no thrush, no exudate. Lymphatic: No lymphadenopathy Cardiovascular exam: S1, S2 was heard. No murmurs, rubs, gallops Lung: Clear on auscultation bilaterally, no wheeze, rale, rhonchi. GI: Abdominal soft, nondistended, nontenderness, positive bowel sounds. Extremity: No crepitus, cyanosis, edema. Pedal pulses present bilateral. Full range of motion. Skin: Normal turgor, no rash. Psych: Alert, oriented x3. Neurology: No focal deficits, cranial nerve II to XII grossly intact. This medical document was created using an electronic medical record system with [employer] direct computerized dictation system. Although this document has been carefully reviewed, there may still be some phonetic and typographical errors. These areas are purely typographical due to imperfections of the software programs, and do not reflect any compromise in the patient's medical care. Condition at Discharge: Stable Final Diagnosis/Problems List Acute small-bowel obstruction, resolved Discharge Disposition: Home Discharge Instruct/Medications No Active Prescriptions or Reported Meds Discharge Statement: "Patient was advised to return to the ER or call 911 if any headaches, dizziness, shortness of breath, chest pain, abdominal pain, bleeding, fevers, or worsening of medical condition. Patient was counseled about treatment plan, medications, possible side effects, patientverbalized understanding. All questions were answered to the best of my ability. This discharge took greater then 30 minutes in planning, reviewing documentation, counseling the patient, and discussing with other team members." ASSESSMENT ASSESSMENT Assessment Date of Service: Jun 01, 2025 Billing Provider: JUDITH DEXTER MD Common Visit Codes: [id number] DISCH DAY >30min JUDITH DEXTER MD Jun 01, 2025 10:54
[2025-06-01 11:27] VITALS: BP 141/82; PULSE 76; RESP 15; TEMP 97.9; O2SAT 96
[2025-06-02] MEDS ORDERED: METR-344 PO (02:09)
[2025-06-02] MEDS ORDERED: LEVO500T91 PO (02:09)
== END 2025-06-01 11:40 | disposition home or self-care (01) | DRG 247 ==
LOC: ER 19:58 → OVERFLOW 05-30 00:54 → WEST WING 05-30 15:08
PROVIDERS: ADMIT Internal Medicine; ATTEND Internal Medicine
PROC: 0D9670Z Drainage of Stomach with Drainage Device, Via Natural or Artificial Opening (ICD-10-PCS; principal; 2025-05-30)
DX: K56.600 Partial intestinal obstruction, unspecified as to cause (principal); A04.9 Bacterial intestinal infection, unspecified
CPT/HCPCS: 36415; 71045; 74177; 74250; 80053; 81001; 83605; 83690; 85025; 85610; 85730; 87040; 99291; G0378; J1885; J2470; J3490